=== PATIENT | female | born 1990 | race Caucasian/White ===

== ENCOUNTER 2019-10-26 15:24 | Inpatient (IN) ==
[2019-10-26] MEDS ORDERED: ALBUTEROL/IPRATROPIUM 3 ML NEB RESP TX STA (16:20)
[2019-10-26 16:29] LABS: Basophils # 0.1 10*3/uL (0.0-0.2); Basophils % 0.6 % (0.0-0.8); Eosinophils # 0.2 10*3/uL (0.0-0.87); Eosinophils % 2.2 % (0.00-10.9); Hematocrit 39.9 VOL% (35.7-47.0); Hemoglobin 12.5 GM/DL (12.0-16.0); Immature Granulocytes % 0.3 %; Immature Granulocytes Absolute 0.02 #; Lymphocytes # 2.2 10*3/uL (1.4-4.0); Lymphocytes % 28.3 % (21.3-54.2); Mean Corpuscular HGB Conc 31.3 GM/DL (32-36); Mean Corpuscular Volume 85.4 FL (87-102); Mean Platelet Volume 8.8 FL (9.6-12.0); Monocytes % 7.3 % (1.7-12.7); Neutrophils % 61.3 % (38.7-73.9); Platelet Count 324 T/CUMM (130-400); Red Blood Count 4.67 MC/CUMM (3.8-5.5); Red Cell Distribution Width 15.8 % (9.3-17.3); White Blood Count 7.8 T/CUMM (4-12)
[2019-10-26 16:39] LABS: INR 0.9; PT Patient Result 9.6 SECS (9.6-12.2); Partial Thromboplastin Time 26.5 SECS (20.8-36.0)
[2019-10-26] MEDS ORDERED: hydrALAZINE 20 MG/1 ML VIAL IV STA (16:40)
[2019-10-26] MEDS ORDERED: hydrALAZINE 20 MG/1 ML VIAL ONE (16:40)
[2019-10-26 16:48] LABS: Alanine Aminotransferase 34 U/L (13-56); Albumin 3.4 G/DL (3.4-5.0); Alkaline Phosphatase 107 U/L (45-117); Aspartate Amino Transferase 31 U/L (0-37); Bilirubin,Total < 0.39 MG/DL (0.2-1.0); Blood Urea Nitrogen 23 MG/DL (7-18); Calcium 8.8 MG/DL (8.5-10.1); Estimated Glom Filtration Rate 87 ML/MIN; Glucose 93 MG/DL (74-106); Total Protein 7.9 G/DL (6.4-8.3)
[2019-10-26 16:51] LABS: Troponin I 0.062 NG/ML (0.00-0.045)
[2019-10-26] MEDS: FUROSEMIDE 40 MG/4 ML VIAL IV SCH (19:54)
[2019-10-26 19:55] LABS: Apearance,Urine CLEAR (Clear); Bilirubin,Urine Negative (Negative); Blood, Urine Negative (Negative); Glucose,Urine (UA) Negative (Negative); Ketones,Urine Negative (Negative); Mucus,Urine Occasional /LPF (Occasional); Nitrite,Urine Negative (Negative); Protein,Urine Negative; RBC,Urine 1 /HPF (0-4); Squamous Epithelial Cell,Urine Occasional /HPF (0-10); Urine Color Straw (Yellow); Urine Specific Gravity 1.011 (1.001-1.035); Urine Urobilinogen < 2.0 EU/DL (0.2-1.0); WBC,Urine 2 /HPF (0-6)
[2019-10-26] MEDS: hydrALAZINE 20 MG/1 ML VIAL IV PRN (20:00)
[2019-10-26 20:22] LABS: Troponin I 0.057 NG/ML (0.00-0.045)
[2019-10-26 20:26] LABS: Thyroid Stimulating Hormone 4.47 uIU/ml (0.358-3.74)
[2019-10-26] MEDS: ENOXAPARIN 40 MG/0.4 ML SYRINGE SUBCUT SCH (21:24)
[2019-10-26 21:41] LABS: Barbiturates Screen,Urine Negative (Negative); Benzodiazepines Screen,Urine Negative (Negative); Cannabinoid Screen,Urine Negative (Negative); Opiate Screen,Urine Negative (Negative); Phencyclidine Screen,Urine Negative (Negative)
[2019-10-26] MEDS: ONDANSETRON 4 MG/2 ML VIAL IV PRN (22:20)
[2019-10-26] MEDS: ALBUTEROL/IPRATROPIUM 3 ML NEB RESP TX SCH (23:15)
[2019-10-27] MEDS: ALBUTEROL/IPRATROPIUM 3 ML NEB RESP TX SCH ×5 (03:35→20:09)
[2019-10-27] MEDS: hydrALAZINE 20 MG/1 ML VIAL IV PRN (05:38)
[2019-10-27] MEDS: ONDANSETRON 4 MG/2 ML VIAL IV PRN (05:38)
[2019-10-27 05:44] LABS: Basophils # 0.1 10*3/uL (0.0-0.2); Basophils % 0.5 % (0.0-0.8); Eosinophils # 0.1 10*3/uL (0.0-0.87); Eosinophils % 0.7 % (0.00-10.9); Hematocrit 41.8 VOL% (35.7-47.0); Hemoglobin 13.1 GM/DL (12.0-16.0); Immature Granulocytes % 0.3 %; Immature Granulocytes Absolute 0.03 #; Lymphocytes # 1.8 10*3/uL (1.4-4.0); Lymphocytes % 17.7 % (21.3-54.2); Mean Corpuscular HGB Conc 31.3 GM/DL (32-36); Mean Corpuscular Volume 85.3 FL (87-102); Mean Platelet Volume 8.9 FL (9.6-12.0); Monocytes % 6.8 % (1.7-12.7); Platelet Count 351 T/CUMM (130-400); Red Cell Distribution Width 15.9 % (9.3-17.3); White Blood Count 10.4 T/CUMM (4-12)
[2019-10-27 06:12] LABS: Albumin 3.6 G/DL (3.4-5.0); Bilirubin,Total 0.7 MG/DL (0.2-1.0); Calcium 9.1 MG/DL (8.5-10.1); Osmolality,Calculated 270.2 MOS/KG (273-304); Risk Ratio 3.11; VLDL CHOLESTEROL 29.2 MG/DL
[2019-10-27 07:58] LABS: Troponin I 0.065 NG/ML (0.00-0.045)
[2019-10-27] MEDS ORDERED: FUROSEMIDE 40 MG TABLET PO SCH (09:00)
[2019-10-27] MEDS ORDERED: lisinopriL 20 MG TABLET PO SCH (09:00)
[2019-10-27] MEDS: POTASSIUM CHLORIDE 20 MEQ TABLET PO SCH (09:03)
[2019-10-27] MEDS: lisinopriL 20 MG TABLET PO SCH ×2 (09:03→20:34)
[2019-10-27] MEDS: PANTOPRAZOLE 40 MG TABLET PO SCH (09:03)
[2019-10-27] MEDS: FUROSEMIDE 40 MG/4 ML VIAL IV SCH ×2 (09:03→15:43)
[2019-10-27] MEDS: ASPIRIN CHEW 81 MG TABLET PO SCH ×2 (09:03)
[2019-10-27] MEDS: NICOTINE 21 MG/24 HR PATCH TRANSDERM SCH (09:04)
[2019-10-27] MEDS: METOPROLOL SUCCINATE XL 50 MG TABLET PO SCH (09:04)
[2019-10-27] MEDS: ACETAMINOPHEN 325 MG TABLET PO PRN ×2 (11:57→20:34)
[2019-10-27] MEDS: ENOXAPARIN 40 MG/0.4 ML SYRINGE SUBCUT SCH (20:34)
[2019-10-28] MEDS: ALBUTEROL/IPRATROPIUM 3 ML NEB RESP TX SCH ×4 (03:43→11:09)
[2019-10-28] MEDS: FUROSEMIDE 40 MG/4 ML VIAL IV SCH (08:55)
[2019-10-28] MEDS: lisinopriL 20 MG TABLET PO SCH (08:56)
[2019-10-28] MEDS: ASPIRIN CHEW 81 MG TABLET PO SCH ×2 (08:56→08:58)
[2019-10-28] MEDS: POTASSIUM CHLORIDE 20 MEQ TABLET PO SCH (08:57)
[2019-10-28] MEDS: METOPROLOL SUCCINATE XL 50 MG TABLET PO SCH (08:57)
[2019-10-28] MEDS: PANTOPRAZOLE 40 MG TABLET PO SCH (08:57)
[2019-10-28] MEDS: NICOTINE 21 MG/24 HR PATCH TRANSDERM SCH (08:57)
[2019-10-28] MEDS ORDERED: amLODIPine 10 MG TABLET PO SCH (09:00)
[2019-10-28 11:28] VITALS: BP 132/79
[2019-10-28] MEDS ORDERED: FUROSEMIDE 20 MG TABLET PO SCH (16:00)
== END 2019-10-28 14:10 | disposition home or self-care (01) | DRG 189 ==
LOC: N.ED 15:24 → N.EDINP 18:59 → N.TELEN 19:23
PROVIDERS: ADMIT Internal Medicine; ATTEND Internal Medicine

== ENCOUNTER 2021-11-01 02:07 | Inpatient (IN) ==
[2021-11-01] MEDS ORDERED: hydrALAZINE 20 MG/1 ML VIAL IV STA (02:51)
[2021-11-01] MEDS ORDERED: FUROSEMIDE 100 MG/10 ML VIAL IV STA (02:51)
[2021-11-01] MEDS ORDERED: ONDANSETRON 4 MG/2 ML VIAL IV STA ×2 (02:51→05:29)
[2021-11-01] MEDS ORDERED: ALBUTEROL/IPRATROPIUM 3 ML NEB RESP TX STA (02:51)
[2021-11-01] MEDS ORDERED: methylPREDNISolone SOD SUC 125 MG/2 ML VIAL IV STA (02:51)
[2021-11-01 03:47] LABS: Basophils # 0.1 10*3/uL (0.0-0.2); Basophils % 0.7 % (0.0-0.8); Eosinophils # 0.1 10*3/uL (0.0-0.87); Eosinophils % 0.8 % (0.00-10.9); Hematocrit 35.8 VOL% (35.7-47.0); Hemoglobin 11.4 GM/DL (12.0-16.0); Immature Granulocytes % 0.5 %; Immature Granulocytes Absolute 0.05 #; Lymphocytes % 29.1 % (21.3-54.2); Mean Corpuscular HGB Conc 31.8 GM/DL (32-36); Mean Corpuscular Volume 88.6 FL (87-102); Mean Platelet Volume 9.1 FL (9.6-12.0); Monocytes % 3.7 % (1.7-12.7); Neutrophils % 65.2 % (38.7-73.9); Platelet Count 339 T/CUMM (130-400); Red Blood Count 4.04 MC/CUMM (3.8-5.5); Red Cell Distribution Width 18.6 % (9.3-17.3); White Blood Count 10.3 T/CUMM (4-12)
[2021-11-01 04:07] LABS: Albumin 3.2 G/DL (3.4-5.0); Bilirubin,Total 0.9 MG/DL (0.20-1.00); Calcium 9.4 MG/DL (8.5-10.1); Osmolality,Calculated 280.7 MOS/KG (273-304); Potassium 3.8 MMOL/L (3.5-5.1); Total Protein 7.2 G/DL (6.4-8.2)
[2021-11-01] MEDS ORDERED: LABETALOL 20 MG/4 ML SYRINGE IV STA ×2 (04:15→04:52)
[2021-11-01 04:56] LABS: Bilirubin,Urine Negative (Negative); Blood, Urine Moderate mg/dL (Negative); Glucose,Urine (UA) Negative (Negative); Hyaline Casts,Urine 15 /LPF (0-3); Ketones,Urine Negative (Negative); Mucus,Urine Occasional /LPF (Occasional); Nitrite,Urine Negative (Negative); Protein,Urine >=500 MG/DL; RBC,Urine 1 /HPF (0-4); Squamous Epithelial Cell,Urine Occasional /HPF (0-10); Urine Appearance CLEAR (Clear); Urine Color Amber (Yellow); Urine Specific Gravity 1.019 (1.001-1.035)
[2021-11-01] MEDS ORDERED: GLUCAGON 1 MG VIAL IM PRN (05:14)
[2021-11-01] MEDS ORDERED: ONDANSETRON 4 MG/2 ML VIAL IV PRN (05:14)
[2021-11-01] MEDS ORDERED: NICOTINE 21 MG/24 HR PATCH TRANSDERM PRN (05:14)
[2021-11-01] MEDS ORDERED: MORPHINE 2 MG/1 ML SYRINGE IV PRN (05:14)
[2021-11-01] MEDS ORDERED: DEXTROSE 10% 250 ML BAG IV PRN (05:14)
[2021-11-01] MEDS ORDERED: ACETAMINOPHEN 325 MG TABLET PO PRN (05:14)
[2021-11-01 05:18] LABS: Barbiturates Screen,Urine Negative (Negative); Benzodiazepines Screen,Urine Negative (Negative); Cannabinoid Screen,Urine Negative (Negative); Opiate Screen,Urine Negative (Negative); Phencyclidine Screen,Urine Negative (Negative)
[2021-11-01] MEDS ORDERED: CLORAZEPATE 3.75 MG TABLET PO PRN (05:21)
[2021-11-01] MEDS ORDERED: LABETALOL 100 MG/20 ML VIAL IV ONE (06:12)
[2021-11-01 06:20] LABS: Anisocytosis 1+; Ovalocytes Few; Platelet Estimate Normal; Polychromasia Slight
[2021-11-01 07:37] LABS: Risk Ratio 3.69; Thyroid Stimulating Hormone 6.93 uIU/ml (0.358-3.74)
[2021-11-01] MEDS: FUROSEMIDE 40 MG/4 ML VIAL IV SCH ×2 (08:25→16:53)
[2021-11-01] MEDS: ENOXAPARIN 40 MG/0.4 ML SYRINGE SUBCUT SCH (08:30)
[2021-11-01] MEDS: METOPROLOL SUCCINATE XL 50 MG TABLET PO SCH (08:32)
[2021-11-01] MEDS: PANTOPRAZOLE 40 MG TABLET PO SCH (08:32)
[2021-11-01] MEDS: amLODIPine 10 MG TABLET PO SCH (08:32)
[2021-11-01] MEDS: LABETALOL 20 MG/4 ML SYRINGE IV PRN (08:40)
[2021-11-01] MEDS ORDERED: POTASSIUM CHLORIDE 10 MEQ TABLET PO ONE (10:13)
[2021-11-01] MEDS: ASPIRIN EC 81 MG TABLET PO SCH (16:00)
[2021-11-02] MEDS: LABETALOL 20 MG/4 ML SYRINGE IV PRN (01:06)
[2021-11-02 06:57] LABS: Basophils % 0.1 % (0.0-0.8); Eosinophils % 0.1 % (0.00-10.9); Hematocrit 39.4 VOL% (35.7-47.0); Hemoglobin 12.2 GM/DL (12.0-16.0); Immature Granulocytes % 0.5 %; Immature Granulocytes Absolute 0.07 #; Lymphocytes # 3.2 10*3/uL (1.4-4.0); Lymphocytes % 20.9 % (21.3-54.2); Mean Platelet Volume 9.3 FL (9.6-12.0); Monocytes % 7.4 % (1.7-12.7); NRBC # 0.02 10*3/uL; Platelet Count 387 T/CUMM (130-400); Red Blood Count 4.33 MC/CUMM (3.8-5.5); Red Cell Distribution Width 18.7 % (9.3-17.3); White Blood Count 15.1 T/CUMM (4-12)
[2021-11-02] MEDS: FUROSEMIDE 40 MG/4 ML VIAL IV SCH ×2 (08:27→10:38)
[2021-11-02] MEDS: ENOXAPARIN 40 MG/0.4 ML SYRINGE SUBCUT SCH (08:27)
[2021-11-02] MEDS: amLODIPine 10 MG TABLET PO SCH (08:27)
[2021-11-02] MEDS: METOPROLOL SUCCINATE XL 50 MG TABLET PO SCH (08:28)
[2021-11-02] MEDS: PANTOPRAZOLE 40 MG TABLET PO SCH (08:28)
[2021-11-02] MEDS: ASPIRIN EC 81 MG TABLET PO SCH (08:28)
[2021-11-02 08:58] LABS: Calcium 9.6 MG/DL (8.5-10.1); Osmolality,Calculated 278.1 MOS/KG (273-304); Potassium 3.7 MMOL/L (3.5-5.1)
[2021-11-02 09:30] LABS: Protein/Creatinine Ratio,Urine 0.4 RATIO
[2021-11-02] MEDS ORDERED: FUROSEMIDE 40 MG TABLET PO SCH (10:42)
[2021-11-02 12:38] VITALS: BP 157/104
== END 2021-11-02 12:57 | disposition home or self-care (01) | DRG 291 ==
LOC: SUATTDRO → N.ED 02:07 → N.EDINP 05:14 → N.TELES 17:57
PROVIDERS: ADMIT Internal Medicine Geriatric Medicine; ATTEND Internal Medicine Geriatric Medicine